=== PATIENT | male | born 1975 | race Caucasian/White ===

== ENCOUNTER 2016-09-03 03:49 | Inpatient (IN) | payer OTHER ==
[~2016-09-03] VITALS: Ht 185.4 cm; Wt 93.2 kg
[~2016-09-03 03:49] MED LIST: LORA-303 PO
[2016-09-03 03:54] VITALS: BP 148/95; PULSE 107; RESP 18; O2SAT 98
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
[2016-09-03 04:47] LABS: BASOPHILS % (AUTO) 0.6 % (0-3); EOSINOPHILS % (AUTO) 2.6 % (0-5); Mean Corpuscular Hemoglobin 30.6 pg (27.0-35.0); Mean Corpuscular Volume 85.7 fL (81-100); NEUTROPHILS % (AUTO) 69.9 % (40-74); Platelet Count 293 bil/L (150-400)
[2016-09-03] MEDS ORDERED: OLANZapine Zydis ODT 5 mg Tablet PO ONE (06:35)
[2016-09-03 07:12] VITALS: BP 138/93; PULSE 104; RESP 20; O2SAT 96
--- NOTE | 2016-09-03 08:30 | DRSVH ---
PROCEDURE: CT BRAIN WITHOUT CONTRAST ([id number]) INDICATIONS: NEW ONSET HALLUCINATIONS TECHNIQUE: Noncontrast 4.5 mm thick angled axial sections acquired from the foramen magnum to the vertex, with c oronal reformats. COMPARISON: None. FINDINGS: Image quality: Excellent. CSF spaces: Basal cisterns are patent. No extra-axial fluid collections. Ventricles are normal in size and shape. Brain: No midline shift. No intracranial masses or hemorrhage. Hester-white matter interface is norm al. Skull and face: Calvarium and visualized facial bones are intact. 1.1 x 0.6 cm lytic focus noted in the lateral margin of the left supraorbital rim which is nonspecific imaging characteristics. Sinuses: Mucosal thickening noted in the maxillary sinuses. The mastoids are clear. IMPRESSION: 1. No acute intracranial disease process. 2. Small lytic focus involving the left supraorbital rim. Recommend nuclear medicine bone scan to aid in differentiating benign from aggressive processes. Dictated by: Tabitha Caro MD, PhD on 09/03/2016 at 8:24 Approved by: Tabitha Caro MD, PhD on 09/03/2016 at 8:28
[2016-09-03 12:54] VITALS: BP 131/93; PULSE 104; RESP 18; O2SAT 98
[2016-09-03 13:14] VITALS: BP 131/93; PULSE 104; RESP 18; O2SAT 98
--- NOTE | 2016-09-03 15:11 | PCM.CHPMED ---
Subjective Date of Service: Sep 03, 2016 Primary Physician: Admitting Physician: Vijay Parrish MD Primary Care Physician: Muna Wilson MD Attending Physician: Vijay Parrish MD Chief Complaint: Chief Complaint: Leukocytosis and psychosis History of Present Illness: This is a medical consultation requested by inpatient psychiatry. 5-year-old gentleman with a history of ADD who is admitted with acute auditory hallucinations. He has no history of psychosis, schizophrenia, or schizoaffective disorder. He denies a family history of the above. He has a remote history of alcohol dependence but has been sober for about a year. He uses occasional marijuana but denies any other illicit drug use including methamphetamines. The patient has a right periorbital hematoma which she declines to talk about today. I am told this may relate to his self-inflicted wound. The patient was evaluated head CT which showed abnormal signal in the right orbital rim. No fracture. He also is noted to have leukocytosis. The patient denies recent infectious symptoms including rhinorrhea and sore throat cough dyspnea. No nausea vomiting or diarrhea. No hematuria or dysuria. No myalgias or arthralgias fevers or chills. Review of Systems: Constitutional: Reports: Malaise, Denies: Chills, Fever, Sweats, Weakness Eyes: Denies: Conjunctive Inflammation, Double Vision, Eyelid Inflammation, Redness, Vision Changes ENT: Denies: Dysphagia, Hoarseness, Nasal Congestion, Nose Discharge, Nose Pain Neck: Denies: Pain, Swelling Cardiovascular: Denies: Chest Pain, Irregular Heart Rate, Rapid Heart Rate, SOB on Exertion, SOB while laying flat Respiratory: Denies: Cough, Shortness of Breath Gastrointestinal: Denies: Abdominal Pain, Blood in stool (red), Change in Appetite, Diarrhea, Nausea, Vomiting Genitourinary: Denies: Change in Frequency, Dysuria, Hematuria, No burning or pain with urination Musculoskeletal: Denies: Back Pain Skin: Reports: Bruising, Denies: Itching, Lesions, Rash Neurological: Denies: Change in Speech, Confusion, Drooping Mouth, Seizures, Somnolence Psychologic: Reports: Agitation, Anxiety, Depression, Denies: Insomnia, PTSD-Post Traumatic Stress Disorder, Suicidal Thoughts Endocrine: Reports: Blood Glucose Review Hematologic: Denies: Abnormal Bleeding Lymphatic: Denies: Adenopathy PMH Past Medical History 1. Anxiety 2. Hypertension, possible 3. ADD HEENT History: Denies:: Cataracts Glaucoma Cardiovascular History: Denies:: Atrial Fibrillation Peripheral Vascular Respiratory History: Denies:: Asthma Gastrointestinal History: Denies: Cirrhosis Genitourinary History: Denies: HX of Hemodialysis Reproductive History Male: Denies: Prostate Problems Neurological History: Denies: Alzheimer's Disease CVA Musculoskeletal History: Denies: Back Injury Psycho Social History: Positive for:: Anxiety Hx Depression Denies:: Bipolar Disorder Suicide Attempt Skin History: Denies:: History Skin Disorders? Hx Any Other Health Problems?: NoHx Diabetes: No Home Medications Ritalin Allergies: Coded Allergies: No Known Allergies (Unverified , 09/03/16) Social History Hx Alcohol Use: YesHx Substance Use: NoHx Tobacco Use: No Living Arrangement: Alone Exam Vital Signs Vital Sign - Last Date Time Temp Pulse Resp B/P Pulse Ox O2 Delivery O2 Flow Rate FiO2 09/03/16 13:14 36.4 104 18 131/93 98 Room Air General: Alert, Oriented X3, Cooperative, No Acute Distress Head: Normal, Facial Expression & Appearance, Hair, Scalp Eyes: PERRLA, EOMI, Scleral Anicteric Mouth: Mouth Normal Neck: Supple, No Thyromegaly Chest & Lungs: Clear to auscultation & percussion, No adventitious breath sounds Breasts: Normal Back, Sacral Area and Buttocks: Normal Cardiovascular: Exam Unremarkable Pulses: NL carotid, radial, femoral, DP, PT Abdomen: Non-tender, Non-distended Musculoskeletal: Unremarkable, Normal Range of Motion, Spine, Cervical Spine Extremities: Normal bilaterally Skin: Other (no skin rash except the right periorbital hematoma) Neurological: Grossly Neurologically Intact, Cranial Nerves 2-12 Intact, Normal Speech, Strength Normal /4 ext, Normal Gait Lab and Diagnostics Result Diagram: 09/03/1642909/03/16 043 X-Rays, CTs and MRIs 1. No acute intracranial disease process. 2. Small lytic focus involving the left supraorbital rim. Recommend nuclear medicine bone scan to aid in differentiating benign from aggressive processes. Assessment & Plan Assessment 1. Acute psychosis. It is unclear if this is drug related or manifestation of schizophrenia. The patient is having this managed by inpatient behavioral health 2. Leukocytosis. This is a nonspecific finding. We will check blood cultures 2, year and the CSF indicated, chest x-ray. Will watch for fevers. 3. Abnormal signal or enhancing lesion on left orbital rim and head CT, incidental finding. I know the patient has a PSA ordered to the ED but at this point I would simply defer further imaging of this until patient stabilized and likely even discharge in the hospital. The adnexa and could simply be a focus CT of the sinuses normal REM or an MRI. Problems: Pain Evaluation: Adequate Pain Control Resuscitation Status: CPR: Attempt Resuscitation Time spent 35 minutes Marco Antonio Lai MD Sep 03, 2016 15:11
[2016-09-03] MEDS ORDERED: DEXT20TA8 PO (15:17)
[2016-09-03] MEDS ORDERED: CITA40TA PO (15:17)
[2016-09-03] MEDS ORDERED: PROP80TA4 PO (15:17)
[2016-09-03] MEDS ORDERED: LORA1TAB PO (15:17)
[2016-09-03] MEDS ORDERED: Magnesium Hydroxide 10 mL Oral Concentration PO PRN (15:40)
[2016-09-03] MEDS ORDERED: Alum-Mag Hydrox-Simeth 30 mL Suspension PO PRN (15:40)
[2016-09-03] MEDS ORDERED: Benzocaine-Menthol Lozenge 2/Pkg PO PRN (15:40)
--- NOTE | 2016-09-03 15:54 | DRSVH ---
PROCEDURE: X-RAY CHEST ONE VIEW, PORTABLE ([id number]) INDICATIONS: leukocystosis TECHNIQUE: One view of the chest was acquired. COMPARISON: None. FINDINGS: Surgical changes and devices: None. Lungs and pleura: No pleural effusions or pneumothorax. Lungs are clear. Mediastinum: Mediastinal contours appear normal. Heart size is normal. Bones and chest wall: No suspicious bony lesions. Overlying soft tissues appear unremarkable. IMPRESSION: No acute cardiopulmonary disease process. Dictated by: Tabitha Caro MD, PhD on 09/03/2016 at 15:52 Approved by: Tabitha Caro MD, PhD on 09/03/2016 at 15:52
[2016-09-03] MEDS: OLANZapine Zydis ODT 5 mg Tablet PO PRN (15:55)
[2016-09-03] MEDS: LORazepam 1 mg Tablet PO PRN (15:55)
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
--- NOTE | 2016-09-03 17:17 | NUR ---
Nursing Admission Note: Patient arrived on unit in a wheel chair escorted by ER staff and security. LIAM'd 72 hour hold as gravely disabled due too increasing delusions and auditory hallucinations command in nature. Has a blackened right eye "they told me to punch myself in the eye or they would hurt my family." Patient's father's story per record is that patient ran into the fridge and that the patient has been increasingly paranoid and delusional in the last 3 days. Tense during admission process. Speech pressured at times. When discussing his right eye and the chip in it that he would like to remove on his own he brought his finger over to just below the right ear and pointed to a spot that resembled a small fungal rash. "The chip is in here." Patient received Ativan 2 mg PO and Zyprexa Zydis at 1555 with effective results for "high" anxiety and delusional comments. Hospitalist consult ordered and patient seen by Dr. Lai. Will continue to monitor mood and behavior.
--- NOTE | 2016-09-03 20:12 | NUR ---
OBSERVATIONS 1100 TO 2130 Pt arrived on unit at 1300. Pt presents as paranoid and delusional, believes there are transceivers in his R eye and lower cheek. That his neighbors have been coming into his home and doing these things to him when he is unconscious d/t heavy drinking. Pt was agitated upon arrival claiming he did not know he was brought to unit involuntarily and repeatedly asked for a mirror and tweezers to get the transceiver out of his eye. Shortly after admit pt went to room to sleep. Maintained Q15 checks for safety as directed.
[2016-09-03] MEDS ORDERED: _LORazepam 1 mg Tablet PO SCH (20:30)
[2016-09-03] MEDS: LORazepam 1 mg Tablet PO SCH (20:36)
[2016-09-03] MEDS ORDERED: OLANZapine Zydis ODT 5 mg Tablet PO SCH (21:00)
[2016-09-03 23:56] LABS: APPEARANCE,URINE HAZY (CLEAR,HAZY); COLOR,URINE YELLOW (YELLOW); OCCULT BLOOD,URINE NEGATIVE (NEGATIVE); UROBILINOGEN,URINE NORMAL (NORMAL)
--- NOTE | 2016-09-04 05:13 | NUR ---
Pt isolated to room. Asleep at 1745. Pt observed every 15 minutes as ordered.
--- NOTE | 2016-09-04 06:03 | NUR ---
Nursing Note [id number] S:/O: Patient in bed entire shift. Woke to take scheduled medications without difficulty. Requested more blankets due to feeling cold. 13+? hrs sleep. A: Patient tired, cooperative. P: Monitor for response to treatment. Q15 minute safety checks for safety. Follow plan of care.
[2016-09-04] MEDS: LORazepam 1 mg Tablet PO SCH ×2 (08:39→21:00)
[2016-09-04 09:00] VITALS: BP 131/84; PULSE 98; RESP 17
[2016-09-04 10:53] LABS: Mean Corpuscular Hemoglobin 30.3 pg (27.0-35.0); Mean Corpuscular Volume 87.2 fL (81-100)
[2016-09-04] MEDS: OLANZapine Zydis ODT 5 mg Tablet PO PRN (11:31)
[2016-09-04] MEDS: LORazepam 1 mg Tablet PO PRN (11:31)
--- NOTE | 2016-09-04 16:19 | PCM.PNPSY ---
Subjective Date of Service Sep 04, 2016 Subjective The patient was quite irritable on interview and stated, "I feel normal. Who was the doctor who put me in here? Probably was you!" When informed of the process of mental health commitment, he stated that the [facility] was nice to him to his face but that he could hear him saying "shut the fuck up" under his breath. The patient reported that he should be released as he came to the hospital for a blood test (to determine whether he had been poisoned by someone) and that there is nothing mentally wrong with him. The patient could be heard yelling on the phone to someone about the illegality of his hospitalization. He could not be engaged sufficiently to discuss his delusions as he was becoming increasingly agitated. He was medication adherent with olanzapine. Sleep: 15 hours point to staff. Appetite: Patient states that he will not eat well he is illegally detained. Suicidal and homicidal ideation: None reported Auditory hallucinations/Visual hallucinations: Unable to assess Other Psychotic Symptoms: Paranoid and agitated Anxiety/Depression: Unable to assess Current Medications Current Medications Citalopram Hydrobromide 40 mg DAILY PO Last administered on 09/04/16 08:39; Admin Dose 40 MG; Start 09/04/16 at 08:30 Lorazepam 1 mg BID PO Last administered on 09/04/16 08:39; Admin Dose 1 MG; Start 09/03/16 at 20:30 Lorazepam 2 mg Q4H PRN PO Last administered on 09/04/16 11:31; Admin Dose 2 MG ; Start 09/03/16 at 15:40 Olanzapine 5 mg BID PRN PO Last administered on 09/04/16 11:31; Admin Dose 5 MG ; Start 09/03/16 at 15:40 Olanzapine 10 mg HS PO Last administered on 09/03/16 20:36; Admin Dose 10 MG; Start 09/03/16 at 21:00 Olanzapine 10 mg ONCE ONCE PO Last administered on 09/03/16 06:35; Admin Dose 10 MG; Start 09/03/16 at 06:35; Stop 09/03/16 at 06:36; Status DC Propranolol HCl 80 mg BID PO Last administered on 09/04/16 08:39; Admin Dose 80 MG; Start 09/03/16 at 20:30 Zolpidem Tartrate Start with 5 mg and may rep... HS PRN PO Last administered on 09/03/16t 20:35; Admin Dose 5 MG; Start 09/03/16 at 15:40 Mental Status Exam Appearance: Neat/well groomed, Other (right eye ecchymotic, swollen.) Attitude: Guarded, Uncooperative, Hostile/Threatening Behavior: Overtly anxious, Other (angry) Affect: Labile Mood: Irritable, Anxious, Fearful Thought Process/Associations: Circumstantial Speech Production: Normal Speech Rate: Normal Speech Articulation: Normal Thought Content: Suspicious, Perseveration Danger to Self/Suicidal Ideati: None Danger to Others: None Delusions: Paranoid (Endorses), Other (unable to assess but continues to report paranoid delusions) Hallucinations: Auditory (unable to assess), Visual (unable to assess) Consciousness: Alert Orientation: Person, Place, Date, Situation Memory: Short Term Memory (Impaired), Mcc Memory (unable to assess) Estimate Intellectual Function: Average Basis for IQ estimate: Awareness current events, Word use/vocabulary, Educational history, Employment history Attention/Concentration & Cogn: Impaired Insight: None Judgement: Poor Result Diagram: 09/04/16 1030 09/03/16 0430 Mental Health Plan The patient is a 41-year-old male with recent exacerbation paranoia as noted above. The patient's symptoms may have been present for as much as 2 years but did not appear to be present for that. The patient also has an elevated white count of 18,000 and a lytic lesion present on CT scan. The patient has been taking Adderall consistently for 20 years but it is not impossible that this has caused insomnia with resultant psychosis. The patient currently has limited to no insight and believes that his symptoms are due primarily to his neighbors. The patient was given olanzapine in the emergency room which helped to reduce anxiety and agitation. Internal medicine has been consulted and will assess for possible medical causes for psychosis. In the meantime, the patient is being treated symptomatically with olanzapine and Adderall will not be restarted given the potential for worsening psychosis. The patient is demonstrating increased agitation and appears to need an increase in the dose of olanzapine. [place] AXIS I: Psychotic disorder unspecified. Attention deficit disorder by history Panic disorder by history Marijuana use disorder. AXIS II: Deferred AXIS III: See past medical history AXIS IV: Unemployed, lives alone, limited coping skills. AXIS V: GAF 25 Medications Medications to address General Physical Health Propranolol 80 mg twice daily Medications to address Mental Health Citalopram 40 mg daily Lorazepam 1 mg twice daily Lorazepam 2 mg every 4 hours when necessary anxiety not to exceed 6 mg in 24 hours Olanzapine Zydis 10 mg at bedtime Olanzapine Zydis 5 mg twice daily as needed for paranoia/severe agitation Treatments 1. The patient will be moved to the short hallway where he can be better observed to ensure that although he is denying any thoughts of injuring himself , early intervention can occur should this happen. One-to-one is not indicated at this time as he is not indicating any self-harm or harm to others. 2. The patient is encouraged to participate with group and milieu activities. 3. The patient will be seen by the treatment team on a daily basis to assess symptom side effects response to treatment. 4. Olanzapine will be increased to 10 mg twice daily due to persistent and apparent worsening psychosis. 5. Appreciates internal medicine consultation. No sign of infection at this time although white count remains elevated. 6. Anticipated length of stay is 10-14 days. Vijay Parrish MD Sep 04, 2016 16:18
--- NOTE | 2016-09-04 18:07 | NUR ---
Nursing Dayshift: S: "It's not right being sent up here by that doctor and now I can't get out!" O: Patient adamant about not being kept here against his will this AM. Explained the LIAM process and that we would get him his clothes to wear and patient calmed somewhat. After a phone call with his mother he walked into his room and slammed the door loudly interrupting other patients on the unit. Received offer of Ativan 2 mg PO and Zyprexa Zydis 5 mg at 1135 with patient refusing lunch "I'm not eating any of your crap", lying down and going to sleep shortly afterward. Declined offer for supper. Cooperative for hospitalist exam recently. A: Irritable and demanding at times. Med compliant. P: CPOC. Monitor mood and behavior.
--- NOTE | 2016-09-04 18:22 | PCM.PNMED ---
Subjective Date of Service Sep 04, 2016 Subjective Sleeping, arouses easily, no complaints. Denies any pain, nasal congestion or cough. Exam Vital Signs Vital Sign - Last Date Time Temp Pulse Resp B/P Pulse Ox O2 Delivery O2 Flow Rate FiO2 09/04/16 09:00 36.4 98 17 131/84 09/03/16 13:14 98 Room Air Exam Heart: reg Lungs: clear Abd: soft, NT Lab and Diagnostics Result Diagram: 09/04/16 1030 09/03/16 0430 Assessment & Plan 1. Acute psychosis. It is unclear if this is drug related or manifestation of schizophrenia. The patient is having this managed by inpatient behavioral health 2. Leukocytosis,a nonspecific finding, just slightly improved today. So far no signs/symptoms of infection. -- remains afebrile -- blood cultures 2 are no growth so far -- chest x-ray was unremarkable -- UA was negative 3. Head CT report: "Small lytic focus involving the left supraorbital rim. Recommend nuclear medicine bone scan to aid in differentiating benign from aggressive processes." -- PSA ordered byED is negative -- bone scan could be done as an outpatient Resuscitation Status: CPR: Attempt Resuscitation Rachel Barahona MD Sep 04, 2016 18:22
[2016-09-04] MEDS: OLANZapine Zydis ODT 5 mg Tablet PO SCH (21:00)
--- NOTE | 2016-09-04 21:01 | NUR ---
Obs Dayshift [id number] Pt spent most of this shift in bed. Got up late for breakfast, and went back to bed. Shortly after got a call from family, became loud, hitting fist, yelling, swearing, slamming his door. Demanding to be let out, demanding his clothing and shoes. Pt stating that we are making a big mistake by holding him here. Stating that he is not the one that did anything wrong, it was the neighbors. since then pt is refusing to eat or drink. Refusing to participate. Staying in bed. Poor ADL's, Poor meals
[2016-09-04 22:03] VITALS: BP 132/80; PULSE 107; RESP 16
--- NOTE | 2016-09-05 04:39 | NUR ---
Observations from [id number] Pt has remained in room-appears to be asleep- entire shift. Has been monitored every 15 minutes as directed.
--- NOTE | 2016-09-05 05:57 | NUR ---
Nursing Noc Pt isolated in his room all shift. Irritable and angry upon interaction w/ staff. He is demanding that he should not be here. Unable to tolerate outside stimulation and interaction with others. Adequate sleep through the night with over 8.5 hours.
[2016-09-05] MEDS: LORazepam 1 mg Tablet PO PRN (07:35)
[2016-09-05] MEDS: OLANZapine Zydis ODT 5 mg Tablet PO SCH ×2 (07:36→20:14)
[2016-09-05] MEDS: LORazepam 1 mg Tablet PO SCH ×2 (07:44→20:13)
--- NOTE | 2016-09-05 07:45 | NUR ---
Nursing: PRN med: 729: Pt is on phone talking loudly and with pressured speech. Stating that he is being held against his will. That he will not stand for this. That he will not take medications. That he will get out of here within a few hours "even it I have to go to detention". Peer patient took typewriter mechanic aside to state "Be careful. This man is dangerous" Pt. approached by typewriter mechanic and offered scheduled po Olanzepine 10 mg and Ativan 2 mg prn instead of the 1 mg scheduled dose. Pt took meds, swallowed, and went back to Room 230. Addendum: 09/05/16 at 0750 by PARKER FARMER RN Jade ortiz called as Pt was stating he would refuse meds. Staff arrived but no action taken because pt had accepted po meds.
[2016-09-05 09:01] LABS: BASOPHILS % (AUTO) 0.4 % (0-3); MONOCYTES % (AUTO) 11.6 % (4-12); Mean Corpuscular Hemoglobin 30.7 pg (27.0-35.0); Mean Corpuscular Volume 88.2 fL (81-100); NEUTROPHILS % (AUTO) 65.2 % (40-74); Platelet Count 258 bil/L (150-400)
[2016-09-05 10:21] LABS: Magnesium 2.1 mg/dL (1.6-2.6); Phosphorus 3.5 mg/dL (2.5-4.9)
--- NOTE | 2016-09-05 14:12 | PCM.PNMED ---
Subjective Date of Service Sep 05, 2016 Subjective Patient remained medically stable Denied headache, dizziness Still has persistent white count, afebrile overnight Exam Vital Signs Vital Sign - Last Date Time Temp Pulse Resp B/P Pulse Ox O2 Delivery O2 Flow Rate FiO2 09/04/16 22:03 107 16 132/80 09/04/16 09:00 36.4 09/03/16 13:14 98 Room Air Exam NAD, comfortably laying down on the bed Right periorbital bruises, PERRLA, EOMI, CN2-12 grossly intact no JVD, MMM, no LAD RRR, nl s1, s2 no mrg CTAB, no w,c S,ND,NT,normoactive BS+ warm, no edema, pulses 2/2 IVs and Medications Medications Reviewed: Medications were reviewed in detail Lab and Diagnostics Result Diagram: 09/05/16 0840 09/05/16 0840 Assessment & Plan 1. Acute psychosis. It is unclear if this is drug related or manifestation of schizophrenia. The patient is having this managed by inpatient behavioral health 2. Leukocytosis,a nonspecific finding, pt remains afebrile, HD stable, blood cultures 2 are no growth so far, chest x-ray was unremarkable, UA was negative 3. Head CT report: "Small lytic focus involving the left supraorbital rim. Recommend nuclear medicine bone scan to aid in differentiating benign from aggressive processes."PSA ordered byED is negative This ill-defined bony process could certainly be associated with persistent white count, given stable clinical picture, unknown chronicity of leukocytosis, given involuntary senior care in psych unit, it might be beneficial to proceed further work ups as an outpatient, such as bone scan, Hospitalist service will follow likely one more day, if pt clinically stable, then likely sign off. Please do not hesitate to reach. Thank you Resuscitation Status: CPR: Attempt Resuscitation Time spent 35 minutes Walt Christianson MD Sep 05, 2016 14:06
--- NOTE | 2016-09-05 15:55 | NUR ---
Kaye Note: Day shift: 699 to 1899 S: It doesn't hurt. (Eccymosis on right eye) O: Jermaine has been lying on bed most of time since taking scheduled meds and 1 mg Ativan PRN for agitation at 0745. He was visited by hospitalist. No further complaints of pain or demanding to go home. Ate breakfast and lunch in the Dr. Beyond his conversation with a peer this a.m., he has kept to himself. A: PRN Ativan and scheduled Zyprexa effective for decreased agitation. P: Continue to assess for delusional thinking about neighbors. Addendum: 09/05/16 at 1622 by PARKER FARMER RN Above note should read: "...lunch in the Dining room. Beyond ...." Addendum: 09/05/16 at 1856 by PARKER FARMER RN This evening when Jermaine came out for dinner, he was calmer and spoke with fha underwriter about court tomorrow. He was seen by public address announcer this evening. Jermaine also made comments about having guns at home.
[2016-09-05 17:45] VITALS: BP 132/93; PULSE 112; RESP 16
--- NOTE | 2016-09-05 19:38 | NUR ---
Observations 0900 to 2130 Pt affect and mood was isolative, flat and guarded. Pt was in her room and in bed most of the shift. Coming out for meals only, then returning to his room. Pt speech and eye contact was ok. Pt declined to attend group and unit activities. Pt attended meals in D.R. Pt declined breakfast but ate 100% of lunch and dinner. Pt was offered snack but he refused. Pt maintained behavior throughout the shift. Pt has been polite, pleasant and cooperative when approached by this commercial insurance underwriter. Pt was observed every 15 minutes throughout the shift as ordered.
--- NOTE | 2016-09-05 21:02 | PCM.PNPSY ---
Subjective Date of Service Sep 05, 2016 Subjective The patient continues easily agitated and wanting discharge. His parents reported that the patient had stopped letting them in the house 2 years ago over concerns about the neighbors. When they went in to clean after he had been hospitalized, they found that he had taken the sliding doors off and screwed them over the windows. The patient is still suspicious of the motives of the neighbors and that he had only needed blood work. Sleep: "good" Appetite: started eating today. Suicidal and homicidal ideation: Denies Auditory hallucinations/Visual hallucinations: Denies Other Psychotic Symptoms: remains hostile and delusional. Anxiety: no response Depression: "no response Current Medications Current Medications Citalopram Hydrobromide 40 mg DAILY PO Last administered on 09/05/16 07:36; Admin Dose 40 MG; Start 09/04/16 at 08:30 Olanzapine 10 mg BID PO Last administered on 09/05/16 20:14; Admin Dose 10 MG; Start 09/04/16 at 20:30 Olanzapine 10 mg HS PO Last administered on 09/03/16 20:36; Admin Dose 10 MG; Start 09/03/16 at 21:00; Stop 09/04/16 at 16:20; Status DC Mental Status Exam Vital Signs Vital Signs Date Time Temp Pulse Resp B/P Pulse Ox O2 Delivery O2 Flow Rate FiO2 09/05/16 17:45 36.2 112 16 132/93 Appearance: Neat/well groomed, Other (right eye ecchymotic, swollen.) Attitude: Guarded, Uncooperative, Hostile/Threatening Behavior: Overtly anxious, Other (angry) Affect: Labile Mood: Irritable, Anxious, Fearful Thought Process/Associations: Circumstantial Speech Production: Normal Speech Rate: Normal Speech Articulation: Normal Thought Content: Suspicious, Perseveration Danger to Self/Suicidal Ideati: None Danger to Others: None Delusions: Paranoid (Endorses), Other (unable to assess but continues to report paranoid delusions) Hallucinations: Auditory (Denies), Visual (Denies) Consciousness: Alert, Hyper-vigilant Orientation: Person, Place, Date, Situation Memory: Short Term Memory (Impaired), Combination Worker Memory (unable to assess) Estimate Intellectual Function: Average Basis for IQ estimate: Awareness current events, Word use/vocabulary, Educational history, Employment history Attention/Concentration & Cogn: Impaired Insight: None Judgement: Poor Result Diagram: 09/05/16 0840 09/05/16 0840 Mental Health Plan The patient is a 41-year-old male with recent exacerbation paranoia as noted above. The patient's symptoms may have been present for as much as 2 years. The patient also has an elevated white count of 18,000 on admission (and remains elevated) and a lytic lesion present on CT scan. The patient has been taking Adderall consistently for 20 years and this may have contributed to insomnia with resultant psychosis, but he has been sleeping well and continues to be psychotic. The patient currently has limited to no insight and believes that his symptoms are due primarily to his neighbors. The patient was given olanzapine in the emergency room which helped to reduce anxiety and agitation. Internal medicine has been consulted and there does not appear to be a medical cause for psychosis. The patient is being treated with olanzapine and there has been some reduction in agitation with increased olanzapine dose. [place] AXIS I: Psychotic disorder unspecified. Attention deficit disorder by history Panic disorder by history Marijuana use disorder. AXIS II: Deferred AXIS III: See past medical history AXIS IV: Unemployed, lives alone, limited coping skills. AXIS V: GAF 25 Medications Medications to address General Physical Health Propranolol 80 mg twice daily Medications to address Mental Health Citalopram 40 mg daily Lorazepam 1 mg twice daily Lorazepam 2 mg every 4 hours when necessary anxiety not to exceed 6 mg in 24 hours Olanzapine Zydis 10 mg twice daily Olanzapine Zydis 5 mg twice daily as needed for paranoia/severe agitation Treatments 1. The patient will be moved to the short hallway where he can be better observed to ensure that although he is denying any thoughts of injuring himself , early intervention can occur should this happen. One-to-one is not indicated at this time as he is not indicating any self-harm or harm to others. 2. The patient is encouraged to participate with group and milieu activities. 3. The patient will be seen by the treatment team on a daily basis to assess symptom side effects response to treatment. 4. Appreciates internal medicine consultation. No sign of infection at this time although white count remains elevated. 5. Anticipated length of stay is 10-14 days. Vijay Parrish MD Sep 05, 2016 21:02
--- NOTE | 2016-09-06 06:40 | NUR ---
Nursing Noc Pt more pleasant and social this shift. He attended evening group. Took scheduled medication without difficulty. Retired to bed and appeared asleep by 2100 with no noted distress or awakening per protocol checks. Total sleep over 9 hours.
[2016-09-06] MEDS: OLANZapine Zydis ODT 5 mg Tablet PO SCH ×2 (10:32→21:06)
[2016-09-06] MEDS: LORazepam 1 mg Tablet PO SCH ×2 (10:32→21:05)
[2016-09-06 10:45] VITALS: BP 127/89; PULSE 113; RESP 18
[2016-09-06 13:38] LABS: Mean Corpuscular Hemoglobin 30.9 pg (27.0-35.0); Mean Corpuscular Volume 87.4 fL (81-100)
--- NOTE | 2016-09-06 15:29 | PCM.PNMED ---
Subjective Date of Service Sep 06, 2016 Subjective Patient denied any symptoms today Denied chest pain or palpitation EKG was ordered given persistent tachycardia Repeat CBC shows trending down wbc Exam Vital Signs Vital Sign - Last Date Time Temp Pulse Resp B/P Pulse Ox O2 Delivery O2 Flow Rate FiO2 09/06/16 10:45 36.2 113 18 127/89 09/03/16 13:14 98 Room Air Exam NAD, comfortably laying down on the bed no JVD, MMM, no LAD RRR, nl s1, s2 no mrg CTAB, no w,c S,ND,NT,normoactive BS+ warm, no edema, pulses 2/2 IVs and Medications Medications Reviewed: Medications were reviewed in detail Lab and Diagnostics Result Diagram: 09/06/16 1315 09/06/16 1315 Assessment & Plan 1. Acute psychosis. It is unclear if this is drug related or manifestation of schizophrenia. The patient is having this managed by inpatient behavioral health 2. Leukocytosis,a nonspecific finding, pt remains afebrile, HD stable, blood cultures 2 are no growth so far, chest x-ray was unremarkable, UA was negative -Given persistent tachycardia along with leukocytosis, EKG was ordered. TSH WNL , will trend WBC 1 more day 3. Head CT report: "Small lytic focus involving the left supraorbital rim. Recommend nuclear medicine bone scan to aid in differentiating benign from aggressive processes."PSA ordered byED is negative This ill-defined bony process could certainly be associated with persistent white count, given stable clinical picture, unknown chronicity of leukocytosis, given involuntary fdc in psych unit, it might be beneficial to proceed further work ups as an outpatient, such as bone scan, Hospitalist service will follow likely one more day, if pt clinically stable, then likely sign off. Please do not hesitate to reach. Thank you Resuscitation Status: CPR: Attempt Resuscitation Time spent 35 minutes Walt Christianson MD Sep 06, 2016 15:29
--- NOTE | 2016-09-06 17:19 | NUR ---
Nursing: Day shift 0700 through 1900 S:/O: At 0845, telegraphic typewriter mechanic received call from Jermaine's mom requesting to talk to Dr. Parrish. She left message that the parent's did not want Jermaine to have to stay in [facility] for 14 days - That parents would be willing to take care of him at home and get him to outpatient psychiatrist. Message conveyed. After breakfast when telegraphic typewriter mechanic approached Jermaine sitting at a table in the DR, Jermaine showed telegraphic typewriter mechanic the picture of a tiny micro processor shown in a hearing aid ad and commented that this picture was evidence of how technology was at a level where there were small computer-capable chips. He commented "I'm not sure they had implanted it, maybe 50/50. No, really, I don't think they did...When the noise is loud (My house is in a [place]de[place] and it funnels the sound), I will wear my ear phones that I got at [facility] that block out noise." He did acknowledge that the obvious eye injury was self-inflicted. "I hadn't slept for 5 nights and it just got to me." Jermaine went on to explain calmly ( in contrast to yesterday) how important it was that he be released today to attend to unemployment job search requirements and union responsibilities. Also reiterated that he does not want/need psychiatric medications. After meeting with Dr. Parrish just after court, Jermaine acknowledged that he understood the plan of care. He didn't become irate or lose behavioral control or request discharge the rest of the shift. Die Maker Apprentice advised Jermaine that he could sign an AUNDREA if he wanted staff to talk to his parents about his progress. He declined, stating that he would prefer to be the one to talk to them about how he feels. A: ?Still delusional r/t implanted chip. Calmer and becoming acceptant about need for treatment. but still minimizes mental state that resulted in alf. P: Assess pt's compliance with treatment by behavior when offered scheduled meds this pm. Addendum: 09/06/16 at 1756 by PARKER FARMER RN Amended: Links added.
--- NOTE | 2016-09-06 17:53 | NUR ---
Observations [id number] Pt was asleep in bed upon start of shift. He attended meals, eating 100%. Pt was very focused on discharge, stating at Community meeting that his goal was to "prove to everyone that I won't harm myself or others....there is no reason for me to be here. I'm the victim here." Pt attended court and then went to bed, and spent much of his time in his room sleeping. Pt was friendly with both staff and peers, and appeared to be more accepting of the fact that he will be here for a few days. Pt did not attend group. He was observed every 15 minutes of shift as directed.
--- NOTE | 2016-09-06 20:02 | NUR ---
Electrical Systems Designer/Counselor: S/O: Patient slept 8.5+ hours last night as per staff. He denies S/I and H/I. He denies auditory and visual hallucinations. Depression is 0/10. A: Patient is cooperative, guarded, anxious, delusional, restricted affect, paranoid, limited insight, limited judgment. P: Follow care plan, coordinate out-patient providers.
--- NOTE | 2016-09-06 20:12 | PCM.PNPSY ---
Subjective Date of Service Sep 06, 2016 Subjective The patient is less agitated today and more willing to cooperate with treatment. The patient is still minimizing his symptoms and reports that the neighbors voices were coming through the small hole in the wall and a gap in the window. He also remains focused on being poisoned somehow. The patient is concerned that he feel remains in the hospital long-term he may miss out on a job. The patient's parents have reportedly agreed to have the patient lived with them and will work on getting in follow-up. The patient is denying side effects from medications. Sleep: 8+ hours "good" Appetite: "Good." Suicidal and homicidal ideation: Denies Auditory hallucinations/Visual hallucinations: Denies Other Psychotic Symptoms: Continues with paranoid delusions Anxiety: Over Depression: Denies Current Medications Current Medications Olanzapine 10 mg BID PO Last administered on 09/06/16t 10:32; Admin Dose 10 MG; Start 09/04/16 at 20:30 Mental Status Exam Appearance: Neat/well groomed, Other (right eye ecchymotic, swollen.) Attitude: Cooperative, Guarded Behavior: Overtly anxious Affect: Restricted Mood: Irritable, Anxious Thought Process/Associations: Logical/Sequential, Goal Directed Speech Production: Normal Speech Rate: Normal Speech Articulation: Normal Thought Content: Suspicious, Perseveration Danger to Self/Suicidal Ideati: None Danger to Others: None Delusions: Paranoid (Endorses), Other (continues to report paranoid delusions) Hallucinations: Auditory (Denies), Visual (Denies) Consciousness: Alert, Hyper-vigilant Orientation: Person, Place, Date, Situation Memory: Short Term Memory (Impaired), Automation Controls Specialist Memory (unable to assess) Estimate Intellectual Function: Average Basis for IQ estimate: Awareness current events, Word use/vocabulary, Educational history, Employment history Attention/Concentration & Cogn: Impaired Insight: None Judgement: Poor Result Diagram: 09/06/16 1315 09/06/16 1315 Mental Health Plan The patient is a 41-year-old male with recent exacerbation of paranoia. The patient's symptoms may have been present for as much as 2 years. The patient also has an elevated white count of 18,000 on admission (and remains elevated by his coming down) and a lytic lesion present on CT scan. The patient has been taking Adderall consistently for 20 years and this may have contributed to insomnia with resultant psychosis, but he has been sleeping well and has been treated with antipsychotics and continues to be psychotic. The patient currently has limited insight and still believes that his symptoms are due primarily to his neighbors. The patient was given olanzapine in the emergency room which helped to reduce anxiety and agitation. Internal medicine has been consulted and there does not appear to be a medical cause for psychosis. The patient is being treated with olanzapine and there has been some reduction in agitation with increased olanzapine dose.The patient's follow-up lab work shows that his white count is coming down. If the patient remains stable tomorrow and is not showing any signs of elopement, further workup may be indicated. [place] AXIS I: Psychotic disorder unspecified. Attention deficit disorder by history Panic disorder by history Marijuana use disorder. AXIS II: Deferred AXIS III: See past medical history AXIS IV: Unemployed, lives alone, limited coping skills. AXIS V: GAF 25 Medications Medications to address General Physical Health Propranolol 80 mg twice daily Medications to address Mental Health Citalopram 40 mg daily Lorazepam 1 mg twice daily Lorazepam 2 mg every 4 hours when necessary anxiety not to exceed 6 mg in 24 hours Olanzapine Zydis 10 mg twice daily Olanzapine Zydis 5 mg twice daily as needed for paranoia/severe agitation Treatments 1. One-to-one is not indicated at this time as he is not indicating any self- harm or harm to others. 2. The patient is encouraged to participate with group and milieu activities. 3. The patient is encouraged to be medication adherent 4. The patient will be seen by the treatment team on a daily basis to assess symptom side effects response to treatment. 5. 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 6. Appreciates internal medicine consultation. No sign of infection at this time although white count remains elevated. 7. Anticipated length of stay is 10-14 days. Vijay Parrish MD Sep 06, 2016 20:11
--- NOTE | 2016-09-07 05:58 | NUR ---
Nursing Note 7p-7a Pt isolating to room most of shift, affect flat and pt guarded. Pt stated some anxiety and denied depression and SI but was unwilling to discuss feelings or current situation. Pt compliant with meds and no PRN's given on shift. Pt cooperative and polite with staff limited socializing with peers noted. Sleep time noted 0 and has had uninterrupted sleep throughout the night. Q15 min safety checks per protocol [facility] sleep, safety, behavior
[2016-09-07] MEDS: LORazepam 1 mg Tablet PO SCH ×2 (09:03→20:46)
[2016-09-07] MEDS: OLANZapine Zydis ODT 5 mg Tablet PO SCH ×2 (09:04→20:46)
[2016-09-07] MEDS: LORazepam 1 mg Tablet PO PRN (09:39)
--- NOTE | 2016-09-07 11:14 | PCM.PNMED ---
Subjective Date of Service Sep 07, 2016 Subjective No overnight event EKG showed sinus76, pt denied any other symptoms Exam Vital Signs Vital Sign - Last Date Time Temp Pulse Resp B/P Pulse Ox O2 Delivery O2 Flow Rate FiO2 09/06/16 10:45 36.2 113 18 127/89 09/03/16 13:14 98 Room Air Exam NAD, comfortably laying down on the bed no JVD, MMM, no LAD RRR, nl s1, s2 no mrg CTAB, no w,c S,ND,NT,normoactive BS+ warm, no edema, pulses 2/2 IVs and Medications Medications Reviewed: Medications were reviewed in detail Lab and Diagnostics Result Diagram: 09/06/16 1315 09/06/16 1315 Assessment & Plan 1. Acute psychosis. It is unclear if this is drug related or manifestation of schizophrenia. The patient is having this managed by inpatient behavioral health 2. Leukocytosis,a nonspecific finding, pt remains afebrile, HD stable, blood cultures 2 are no growth so far, chest x-ray was unremarkable, UA was negative -Given persistent tachycardia along with leukocytosis, EKG was ordered. showed normal rate, sinus rhythm. TSH WNL 3. Head CT report: "Small lytic focus involving the left supraorbital rim. Recommend nuclear medicine bone scan to aid in differentiating benign from aggressive processes."PSA ordered byED is negative This ill-defined bony process could certainly be associated with persistent white count, given stable clinical picture, unknown chronicity of leukocytosis, given involuntary senior living in psych unit, it might be beneficial to proceed further work ups as an outpatient, such as bone scan. I do not see any urgent need of inpatient workups. Thank you for allowing me taking care of this patient. Hospitalist service will sign off. Please have patient follow up PCP upon discharge. Please do not hesitate to reach hospital service again if you have any further question or concern Resuscitation Status: CPR: Attempt Resuscitation Time spent 35 minutes Walt Christianson MD Sep 07, 2016 11:14
--- NOTE | 2016-09-07 13:22 | NUR ---
Nursing Note [id number] Behavior S/O: Pt has been isolating to his room. Out of room for meals. Pt interacts very little with staff & peers. Pt has been polite & cooperative today. Affect is tense. He states he wants to "get out of here." Conversation tracking clear & organized with normal rate & rhythm. Took all medications without problems. A: Pt is guarded & minimally cooperative. P: Provide supportive environment. Monitor medications & effects.
[2016-09-07 15:32] VITALS: BP 133/93; PULSE 109
--- NOTE | 2016-09-07 19:38 | NUR ---
Obs Dayshift [id number] Pt spent most of the day in bed, little to no engaging w/ peers or staff and only when approached. Pt is calm, appropriate, not wanting to participate in any groups. Gets up for meals, meds and a little TV in the evening. Ok ADL's, Good meals
--- NOTE | 2016-09-07 19:58 | NUR ---
Structural Steel Erection Supervisor/Counselor: S: "I'm okay with getting the scan done." O: Patient slept 8+ hours last night as per staff. He denies S/I and H/I. He denies auditory and visual hallucinations. Depression is 0/10 and anxiety is 0/10. A: Patient is cooperative, guarded, restricted affect, irritable, suspicious, paranoid, no insight, poor judgment. P: Follow care plan, coordinate with out-patient providers.
--- NOTE | 2016-09-07 20:13 | PCM.PNPSY ---
Subjective Date of Service Sep 07, 2016 Subjective The patient is somewhat sedated following a lorazepam due to agitation. The patient denies all symptoms and is cooperative with the treatment team however he offers little information. The patient is denying side effects from medications. Sleep: 8+ hours "good" Appetite: "Good." Suicidal and homicidal ideation: Denies Auditory hallucinations/Visual hallucinations: Denies Other Psychotic Symptoms: Denies any delusions but demonstrates probably of speech Anxiety: Denies Depression: Denies Current Medications Current Medications Nicotine 1 patch DAILY TOPICAL Last administered on 09/07/16t 10:33; Admin Dose 1 PATCH; Start 09/07/16 at 10:05 Mental Status Exam Vital Signs Vital Signs Date Time Temp Pulse Resp B/P Pulse Ox O2 Delivery O2 Flow Rate FiO2 09/07/16 15:32 109 133/93 Appearance: Neat/well groomed, Other (right eye ecchymotic, swelling improved.) Attitude: Cooperative, Guarded Behavior: Overtly anxious Affect: Restricted Mood: Irritable, Anxious Thought Process/Associations: Logical/Sequential, Goal Directed Speech Production: Normal Speech Rate: Normal Speech Articulation: Normal Thought Content: Suspicious, Perseveration Danger to Self/Suicidal Ideati: None Danger to Others: None Delusions: Paranoid (Endorses), Other (continues to report paranoid delusions, but decreased in intensity) Hallucinations: Auditory (Denies), Visual (Denies) Consciousness: Alert, Hyper-vigilant Orientation: Person, Place, Date, Situation Memory: Short Term Memory (Impaired), Group Home Memory (unable to assess) Estimate Intellectual Function: Average Basis for IQ estimate: Awareness current events, Word use/vocabulary, Educational history, Employment history Attention/Concentration & Cogn: Impaired Insight: None Judgement: Poor Result Diagram: 09/06/16 1315 09/06/16 1315 Mental Health Plan The patient is a 41-year-old male with recent exacerbation of paranoia. The patient's symptoms may have been present for as much as 2 years. The patient also has an elevated white count of 18,000 on admission (and remains elevated by his coming down) and a lytic lesion present on CT scan. The patient has been taking Adderall consistently for 20 years and this may have contributed to insomnia with resultant psychosis, but he has been sleeping well and has been treated with antipsychotics and continues to be psychotic. The patient currently has limited insight and still believes that his symptoms are due primarily to his neighbors. The patient was given olanzapine in the emergency room which helped to reduce anxiety and agitation. Internal medicine has been consulted and there does not appear to be a medical cause for psychosis. The patient is being treated with olanzapine and there has been some reduction in agitation with increased olanzapine dose.The patient's follow-up lab work shows that his white count is coming down. The patient was quite irritable earlier in the day with paranoia. Following lorazepam he was quite drowsy and less irritable. [place] AXIS I: Psychotic disorder unspecified. Attention deficit disorder by history Panic disorder by history Marijuana use disorder. AXIS II: Deferred AXIS III: See past medical history AXIS IV: Unemployed, lives alone, limited coping skills. AXIS V: GAF 25 Medications Medications to address General Physical Health Propranolol 80 mg twice daily Medications to address Mental Health Citalopram 40 mg daily Lorazepam 1 mg twice daily Lorazepam 2 mg every 4 hours when necessary anxiety not to exceed 6 mg in 24 hours Olanzapine Zydis 10 mg twice daily Olanzapine Zydis 5 mg twice daily as needed for paranoia/severe agitation Treatments 1. One-to-one is not indicated at this time as he is not indicating any self- harm or harm to others. 2. The patient is encouraged to participate with group and milieu activities. 3. The patient is encouraged to be medication adherent 4. The patient will be seen by the treatment team on a daily basis to assess symptom side effects response to treatment. 5. Decrease olanzapine to 5 mg in the morning and 10 mg at bedtime. 6. Appreciates internal medicine consultation. No sign of infection at this time although white count remains elevated. We will discuss nuclear medicine option if remains stable tomorrow. 7. Anticipated length of stay is 10-14 days. Vijay Parrish MD Sep 07, 2016 20:13
--- NOTE | 2016-09-08 05:57 | NUR ---
nursing, nights, 11-7 s/o- has appeared to sleep after 2214 during q 15 minute assessments. a- no apparent distress. p- monitor behavior/emotional state, quality, times and amount of sleep, use and effect of medication. meagan
[2016-09-08] MEDS: LORazepam 1 mg Tablet PO SCH (08:30)
[2016-09-08 09:20] VITALS: BP 121/79; PULSE 82; RESP 17
--- NOTE | 2016-09-08 14:36 | NUR ---
Nursing Note [id number] Behavior S/O: Pt has good appetite. Out in milieu. Appropriate with staff & peers. Conversation tracking clear & organized with normal rate & rhythm. Uses only brief sentences with peers & staff. Minimal eye contact. Attended groups but minimally talked with peers. Superficial interactions only. VS stable. A: Pt appears to be paranoid. P: Provide supportive environment. Monitor medications & effects.
[2016-09-08] MEDS: OLANZapine Zydis ODT 5 mg Tablet PO PRN (20:33)
--- NOTE | 2016-09-08 20:34 | NUR ---
Nurse PRN Patient received Ambien 5mg for sleep,shift superintendent caustic cresylate to assess response.
--- NOTE | 2016-09-08 20:42 | NUR ---
Observations 0900 to 2130 Pt affect and mood was flat, content and more social than previous shifts. Pt was out of his room more. Pt speech and eye contact was better. Pt attended group and unit activities. Pt attended community meeting and set a daily goal. Pt played ping pong with peer. Pt attended meals in D.R. Pt declined breakfast but ate 100% of meals. Pt was offered snack but he refused. Pt maintained behavior throughout the shift. Pt has been polite, pleasant and cooperative when approached. Pt was observed every 15 minutes throughout the shift as ordered.
[2016-09-08 22:08] VITALS: BP 135/87; PULSE 90; RESP 16
--- NOTE | 2016-09-08 22:56 | PCM.PNPSY ---
Subjective Date of Service Sep 08, 2016 Subjective The patient reports that he feels "great." He reports that he is getting along with people. He reports that he doesn't "feel too tired or too awake." Patient reported ongoing belief that neighbors were talking to him and answering his questions despite the fact that no one was there. He reports that he has captured them on tape, although he has been too paranoid the last few years to share it with his family. He continues to believe that he has been poisoned but is less adamant about this. The patient is denying side effects from medications. Sleep: "good" Appetite: "Okay." Suicidal and homicidal ideation: Denies Auditory hallucinations/Visual hallucinations: Denies Other Psychotic Symptoms: See above Anxiety: Denies Depression: Denies Current Medications Current Medications Nicotine 1 patch DAILY TOPICAL Last administered on 09/08/16 08:40; Admin Dose 1 PATCH; Start 09/07/16 at 10:05 Nicotine Polacrilex 2 mg Q4H PRN [place] Last administered on 09/08/16 12:26; Admin Dose 2 MG; Start 09/07/16 at 10:05 Olanzapine 2.5 mg DAILY PO Last administered on 09/08/16 08:40; Admin Dose 2.5 MG; Start 09/08/16 at 08:30 Olanzapine 5 mg DAILY PO Last administered on 09/08/16 08:40; Admin Dose 5 MG; Start 09/08/16 at 08:30 Mental Status Exam Vital Signs Vital Signs Date Time Temp Pulse Resp B/P Pulse Ox O2 Delivery O2 Flow Rate FiO2 09/08/16 22:08 90 16 135/87 Appearance: Neat/well groomed, Other (right eye ecchymotic, swelling improved.) Attitude: Cooperative, Guarded Behavior: Overtly anxious Affect: Restricted Mood: Euthymic Thought Process/Associations: Logical/Sequential, Goal Directed Speech Production: Normal Speech Rate: Normal Speech Articulation: Normal Thought Content: Suspicious, Perseveration Danger to Self/Suicidal Ideati: None Danger to Others: None Delusions: Paranoid (Endorses), Other (continues to report paranoid delusions, but decreased in intensity) Hallucinations: Auditory (Denies), Visual (Denies) Consciousness: Alert, Hyper-vigilant Orientation: Person, Place, Date, Situation Memory: Grossly Intact Estimate Intellectual Function: Average Basis for IQ estimate: Awareness current events, Word use/vocabulary, Educational history, Employment history Attention/Concentration & Cogn: Impaired Insight: Limited Judgement: Poor Result Diagram: 09/06/16 1315 09/06/16 1315 Mental Health Plan The patient is a 41-year-old male with recent exacerbation of paranoia. The patient's symptoms may have been present for as much as 2 years. The patient also has an elevated white count of 18,000 on admission (and remains elevated by his coming down) and a lytic lesion present on CT scan. The patient has been taking Adderall consistently for 20 years and this may have contributed to insomnia with resultant psychosis, but he has been sleeping well and has been treated with antipsychotics and continues to be psychotic. The patient currently has limited insight and still believes that his symptoms are due primarily to his neighbors. The patient was given olanzapine in the emergency room which helped to reduce anxiety and agitation. Internal medicine has been consulted and there does not appear to be a medical cause for psychosis. The patient is being treated with olanzapine and there has been some reduction in agitation with increased olanzapine dose.The patient's follow-up lab work shows that his white count is coming down, but remains elevate. Serum lead 1 or normal. Patient calmer, but with impaired though improved insight. [employer] AXIS I: Psychotic disorder unspecified. Attention deficit disorder by history Panic disorder by history Marijuana use disorder. AXIS II: Deferred AXIS III: See past medical history AXIS IV: Unemployed, lives alone, limited coping skills. AXIS V: GAF 25 Medications Medications to address General Physical Health Propranolol 80 mg twice daily Medications to address Mental Health Citalopram 40 mg daily Olanzapine Zydis 10 mg twice daily Olanzapine Zydis 5 mg twice daily as needed for paranoia/severe agitation Treatments 1. One-to-one is not indicated at this time as he is not indicating any self- harm or harm to others. 2. The patient is encouraged to participate with group and milieu activities. 3. The patient is encouraged to be medication adherent 4. The patient will be seen by the treatment team on a daily basis to assess symptom side effects response to treatment. 5. Decrease olanzapine to 5 mg in the morning and 10 mg at bedtime. 6. Appreciates internal medicine consultation. No sign of infection at this time although white count remains elevated. We will discuss nuclear medicine option if remains stable tomorrow. 7. Anticipated length of stay is 10-14 days. 8. Discontinue lorazepam to prevent disinhibition. Vijay Parrish MD Sep 08, 2016 22:56
--- NOTE | 2016-09-09 05:51 | NUR ---
nursing, nights, 11-7 s/o- has appeared to sleep after 2129 during q 15 minute assessments. a- no apparent distress. p- monitor behavior/emotional state, quality, times and amount of sleep, use and effect of medication. meagan
--- NOTE | 2016-09-09 05:59 | NUR ---
Observations from [id number] Pt spent the evening watching tv with other patients. He said he accomplished his goal of working on discharge and pt appeared asleep at 2130 and has slept through the night. Pt has been monitored every 15 minutes as directed.
[2016-09-09 09:05] VITALS: BP 113/73; PULSE 65; RESP 16
--- NOTE | 2016-09-09 12:04 | PCM.DIMED ---
Discharge Instructions Date of Service Sep 09, 2016 Dates of Hospitalization Sep 03, 2016 at 12:00 Discharge Diagnosis Discharge Diagnosis AXIS I: Psychotic disorder unspecified. Attention deficit disorder by history Panic disorder by history Marijuana use disorder. AXIS II: Deferred AXIS III: Hypertension, lytic lesion left orbit AXIS IV: Unemployed, lives alone, limited coping skills. AXIS V: GAF 45 Test Results Laboratory Tests 72 Hours Test 09/06/16 13:15 White Blood Count 14.7th/mm3 (3.8-10.1) Red Blood Count 4.99mil/mm3 (4.40-5.80) Hemoglobin 15.4g/dL (13.8-17.2) Hematocrit 43.6% (41.0-50.0) Mean Corpuscular Volume 87.4fL (81-100) Mean Corpuscular Hemoglobin 30.9pg (27.0-35.0) Mean Corpuscular Hemoglobin Concent 35.3% (32.0-37.0) Red Cell Distribution Width 12.3% (12.3-15.4) Platelet Count 246bil/L (150-400) Sodium Level 139mEq/L (134-144) Potassium Level 3.9mEq/L (3.5-5.2) Chloride Level 99mEq/L (97-108) Carbon Dioxide Level 26mmol/L (18-29) Blood Urea Nitrogen 18mg/dL (6-24) Creatinine 0.58mg/dL (0.76-1.27) Estimat Glomerular Filtration Rate 165mL/min (>59) Glucose Level 90mg/dL (60-99) Calcium Level 9.1mg/dL (8.5-10.1) Total Bilirubin 0.4mg/dL (0.0-1.2) Aspartate Amino Transf (AST/SGOT) 48U/L (0-50) Alanine Aminotransferase (ALT/SGPT) 55U/L (0-44) Alkaline Phosphatase 87U/L (25-150) Total Protein 7.1g/dL (6.4-8.4) Albumin 4.3g/dL (3.4-5.0) Whole Blood Lead 1ug/dL (0-19) CBC Test 09/05/16 08:40 09/06/16 13:15 Neutrophils (%) (Auto) 65.2% (40-74) Lymphocytes (%) (Auto) 20.3% (14-46) Monocytes (%) (Auto) 11.6% (4-12) Eosinophils (%) (Auto) 2.0% (0-5) Basophils (%) (Auto) 0.4% (0-3) White Blood Count 14.7th/mm3 (3.8-10.1) Red Blood Count 4.99mil/mm3 (4.40-5.80) Hemoglobin 15.4g/dL (13.8-17.2) Hematocrit 43.6% (41.0-50.0) Mean Corpuscular Volume 87.4fL (81-100) Mean Corpuscular Hemoglobin 30.9pg (27.0-35.0) Mean Corpuscular Hemoglobin Concent 35.3% (32.0-37.0) Red Cell Distribution Width 12.3% (12.3-15.4) Platelet Count 246bil/L (150-400) CMP Test 09/03/16 04:30 09/05/16 08:40 09/06/16 13:15 Prostate Specific Antigen 0.9ng/mL Thyroid Stimulating Hormone (TSH) 1.210uIU/mL Hold Moran Top Tube Received Phosphorus Level 3.5mg/dL Magnesium Level 2.1mg/dL Procalcitonin 0.05ng/mL Sodium Level 139mEq/L Potassium Level 3.9mEq/L Chloride Level 99mEq/L Carbon Dioxide Level 26mmol/L Blood Urea Nitrogen 18mg/dL Creatinine 0.58mg/dL Estimat Glomerular Filtration Rate 165mL/min Glucose Level 90mg/dL Calcium Level 9.1mg/dL Total Bilirubin 0.4mg/dL Aspartate Amino Transf (AST/SGOT) 48U/L Alanine Aminotransferase (ALT/SGPT) 55U/L Alkaline Phosphatase 87U/L Total Protein 7.1g/dL Albumin 4.3g/dL Diet No restrictions Activity No restrictions Patient Instructions Should you have any thoughts of harming yourself or others, please call the crisis line, your provider, 911, or go to the nearest Emergency Department. Do not change or discontinue your medications without discussing with your provider. You have been given a prescription for 30 days supply of your medication Follow-up with your medical provider regarding the lesion on your left orbit. Follow-up plan Mental Health KOFI Turpin on September 29, 2016 at [address] Ninoska Wilson on September 12, 2016 @ 01:30 [facility] [place] [address] Vijay Parrish MD Sep 09, 2016 12:04
[2016-09-09] MEDS ORDERED: ZLP5T PO (12:06)
[2016-09-09] MEDS ORDERED: OLAN5TAB PO ×2 (12:06)
[2016-09-09] MEDS ORDERED: CITA40TA PO (12:06)
--- NOTE | 2016-09-09 12:50 | NUR ---
Nursing Discharge Note: Patient cooperative with discharge process. Acknowledges understanding of d/c instructions and has a copy with them upon leaving unit at 1245. Belongings accounted for and with patient. Prescriptions faxed to patients pharmacy at [facility]. Patient denies harmful thoughts and hallucinations at this time.
--- NOTE | 2016-09-09 17:32 | NUR ---
Tactical Response Group Officer/Counselor: S: "I'm ready to go home." O: Patient slept 8+ hours last night as per staff. He denies S/I and H/I. He denies auditory and visual hallucinations. Depression is 0/10 and anxiety is 0/10. Out-patient appointments: Dr. Muna Wilson, Primary Care Physician, 09/12/16 at 1:30pm and KOFI Turpin, [facility], 09/29/16 at 9:00am. A: Patient is cooperative, guarded, flat affect, hopeful. P: Follow care plan, coordinate with out-patient providers.
--- NOTE | 2016-09-09 19:34 | PCM.DC.MED ---
Discharge Summary Date of Service Sep 09, 2016 Dates of Hospitalization Date of Hospital Admission Sep 03, 2016 at 12:00 Date of Discharge: Sep 09, 2016 Providers: Admitting Physician: Eugenia Ross MD Primary Care Physician: Muna Wilson MD Attending Physician: Eugenia Ross MD Diagnosis at Time of Discharge Diagnosis at Time of Discharge AXIS I: Psychotic disorder unspecified. Attention deficit disorder by history Panic disorder by history Marijuana use disorder. AXIS II: Deferred AXIS III: Hypertension, lytic lesion left orbit AXIS IV: Unemployed, lives alone, limited coping skills. AXIS V: GAF 45 Consultations Summary of Internal Medicine consultation: This is a medical consultation requested by inpatient psychiatry. 5-year-old gentleman with a history of ADD who is admitted with acute auditory hallucinations. He has no history of psychosis, schizophrenia, or schizoaffective disorder. He denies a family history of the above. He has a remote history of alcohol dependence but has been sober for about a year. He uses occasional marijuana but denies any other illicit drug use including methamphetamines. The patient has a right periorbital hematoma which she declines to talk about today. I am told this may relate to his self-inflicted wound. The patient was evaluated head CT which showed abnormal signal in the right orbital rim. No fracture. He also is noted to have leukocytosis. The patient denies recent infectious symptoms including rhinorrhea and sore throat cough dyspnea. No nausea vomiting or diarrhea. No hematuria or dysuria. No myalgias or arthralgias fevers or chills. 1. Acute psychosis. It is unclear if this is drug related or manifestation of schizophrenia. The patient is having this managed by inpatient behavioral health 2. Leukocytosis,a nonspecific finding, pt remains afebrile, HD stable, blood cultures 2 are no growth so far, chest x-ray was unremarkable, UA was negative -Given persistent tachycardia along with leukocytosis, EKG was ordered. showed normal rate, sinus rhythm. TSH WNL 3. Head CT report: "Small lytic focus involving the left supraorbital rim. Recommend nuclear medicine bone scan to aid in differentiating benign from aggressive processes."PSA ordered byED is negative This ill-defined bony process could certainly be associated with persistent white count, given stable clinical picture, unknown chronicity of leukocytosis, given involuntary penitentiary in psych unit, it might be beneficial to proceed further work ups as an outpatient, such as bone scan. I do not see any urgent need of inpatient workups. Thank you for allowing me taking care of this patient. Hospitalist service will sign off. Please have patient follow up PCP upon discharge. Please do not hesitate to reach hospital service again if you have any further question or concern Procedures XRay, CTs & MRIs Patient Name: JOSE FERGUSON MR#: [id number] Location: [facility] Ordering Phys: Angel Villegas MD Date of Service: 09/03/16 042 PROCEDURE: CT BRAIN WITHOUT CONTRAST ([id number]) INDICATIONS: NEW ONSET HALLUCINATIONS TECHNIQUE: Noncontrast 4.5 mm thick angled axial sections acquired from the foramen magnum to the vertex, with coronal reformats. COMPARISON: None. FINDINGS: Image quality: Excellent. CSF spaces: Basal cisterns are patent. No extra-axial fluid collections. Ventricles are normal in size and shape. Brain: No midline shift. No intracranial masses or hemorrhage. Hester-white matter interface is normal. Skull and face: Calvarium and visualized facial bones are intact. 1.1 x 0.6 cm lytic focus noted in the lateral margin of the left supraorbital rim which is nonspecific imaging characteristics. Sinuses: Mucosal thickening noted in the maxillary sinuses. The mastoids are clear. IMPRESSION: 1. No acute intracranial disease process. 2. Small lytic focus involving the left supraorbital rim. Recommend nuclear medicine bone scan to aid in differentiating benign from aggressive processes. Dictated by: Tabitha Caro MD, PhD on 09/03/2016 at 8:24 Approved by: Tabitha Caro MD, PhD on 09/03/2016 at 8:28 Hospital Course The patient was initially quite threatening and hostile, pounding on doors and trying to elope. He was quite convinced that the neighbors had poisoned him and implanted device is unknown. He initially stated that he would do what ever was required to release from the hospital including harming others. The patient was initially placed on olanzapine 10 mg at bedtime. The patient remained irritable and suspicious for the first few days and refused to eat food for approximately a day and a half. Olanzapine was therefore increased to 10 mg twice daily. Throughout this time, the patient was medication adherent and gradually calmed. 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 The patient experienced some sedation from the lorazepam and olanzapine and so olanzapine was reduced to 5 mg daily and 10 mg at bedtime. The patient expressed concern about his gun rights to staff and continued to report that he believed the neighbors were somehow communicating with him although he could not see them or see signs of how this was done. A 14 day order was requested due to his history of self-injurious behavior, threats to staff, and ongoing paranoid delusions regarding the neighbors and access to weapons. He was released by the court. The patient's family agreed to take custody of the firearms and assist patient in remaining medication adherent. There were no episodes of seclusion or restraint during this hospital stay. On admission, the patient's head CT showed a lytic lesion in his orbit. The patient was too agitated and threatening to elope and so the recommended meal plan and medicine scan could not occur. Given his persistently elevated white count without source, this should be further investigated as an outpatient on follow-up with his primary care provider. At the time of discharge, the patient was reporting his mood was "good." Sleep was reported as "good" and appetite was reported as "normal." He denied anxiety or depression. He denied auditory or visual hallucinations and any thought, intent or plan of hurting himself or others. He denied paranoia regarding the neighbors. He denied medication side effects. Exam Vital Signs (Last) Date Time Temp Pulse Resp B/P Pulse Ox O2 Delivery O2 Flow Rate FiO2 09/09/16 09:05 36.0 65 16 113/73 09/03/16 13:14 98 Room Air Exam Discharge Mental Status Exam Appearance: Neat/well groomed, Other (right eye ecchymotic, swelling improved.) Attitude: Cooperative Behavior: Good eye contact, no abnormal movements noted Affect: Restricted Mood: Euthymic Thought Process/Associations: Logical/Sequential, Goal Directed Speech Production: Normal Speech Rate: Normal Speech Articulation: Normal Thought Content: Still some focus on neighbors/poisoning, but much improved. Danger to Self/Suicidal Ideation: None Danger to Others: None Delusions: Paranoid (continues to report paranoid delusions, but significantly decreased in intensity) Hallucinations: Auditory (Denies), Visual (Denies) Consciousness: Alert Orientation: Person, Place, Date, Situation Memory: Grossly Intact Estimate Intellectual Function: Average Basis for IQ estimate: Awareness current events, Word use/vocabulary, Educational history, Employment history Attention/Concentration & Cognition: Impaired Insight: Improving Judgement: Improving Test 09/03/16 04:30 09/03/16 04:50 09/05/16 08:40 09/06/16 13:15 Prostate Specific Antigen 0.9ng/mL (0.0-4.0) Thyroid Stimulating Hormone (TSH) 1.210uIU/mL (0.450-4.500) Hold Moran Top Tube Received (Received) Urine Color Yellow (YELLOW) Urine Appearance Hazy (CLEAR,HAZY) Urine pH 6.0 (5.0-8.0) Urine Specific [place] 1.020 (1.003-1.035) Urine Protein Negativemg/dL (NEG,TRACE) Urine Glucose (UA) Negativemg/dL (NEGATIVE) Urine Ketones Negativemg/dL (NEGATIVE) Urine Occult Blood Negative (NEGATIVE) Urine Nitrite Negative (NEGATIVE) Urine Bilirubin Negative (NEGATIVE) Urine Urobilinogen Normalmg/dL (NORMAL) Urine Leukocyte Esterase Negative (NEGATIVE) Urine RBC 0-2/hpf (0-2) Urine WBC 0-5/hpf (0-5) Urine Epithelial Cells Occasional/hpf (NONE-MOD) Urine Crystals Oxalic acid crystals (NONE Urine Bacteria None/hpf (NONE-FEW) Urine Hyaline Casts None/lpf (NONE) Urine Granular Casts None seen (NONE SEEN) Urine Waxy Casts None seen (NONE SEEN) Urine Red Blood Cell Casts None seen (NONE SEEN) Urine White Blood Cell Casts None seen (NONE SEEN) Urine Mucus Present (None Seen) Urine Trichomonas None seen (NONE SEEN) Urine Yeast None (NONE SEEN) Urine Culture Reflexed Not indicated Hold Urine Received (Received) Neutrophils (%) (Auto) 65.2% (40-74) Lymphocytes (%) (Auto) 20.3% (14-46) Monocytes (%) (Auto) 11.6% (4-12) Eosinophils (%) (Auto) 2.0% (0-5) Basophils (%) (Auto) 0.4% (0-3) Phosphorus Level 3.5mg/dL (2.5-4.9) Magnesium Level 2.1mg/dL (1.6-2.6) Procalcitonin 0.05ng/mL (0.00-0.08) White Blood Count 14.7th/mm3 (3.8-10.1) Red Blood Count 4.99mil/mm3 (4.40-5.80) Hemoglobin 15.4g/dL (13.8-17.2) Hematocrit 43.6% (41.0-50.0) Mean Corpuscular Volume 87.4fL (81-100) Mean Corpuscular Hemoglobin 30.9pg (27.0-35.0) Mean Corpuscular Hemoglobin Concent 35.3% (32.0-37.0) Red Cell Distribution Width 12.3% (12.3-15.4) Platelet Count 246bil/L (150-400) Sodium Level 139mEq/L (134-144) Potassium Level 3.9mEq/L (3.5-5.2) Chloride Level 99mEq/L (97-108) Carbon Dioxide Level 26mmol/L (18-29) Blood Urea Nitrogen 18mg/dL (6-24) Creatinine 0.58mg/dL (0.76-1.27) Estimat Glomerular Filtration Rate 165mL/min (>59) Glucose Level 90mg/dL (60-99) Calcium Level 9.1mg/dL (8.5-10.1) Total Bilirubin 0.4mg/dL (0.0-1.2) Aspartate Amino Transf (AST/SGOT) 48U/L (0-50) Alanine Aminotransferase (ALT/SGPT) 55U/L (0-44) Alkaline Phosphatase 87U/L (25-150) Total Protein 7.1g/dL (6.4-8.4) Albumin 4.3g/dL (3.4-5.0) Whole Blood Lead 1ug/dL (0-19) Discharge Medications Discharge Medications Citalopram Hydrobromide (Celexa) 40 Mg Tablet 40 MG PO DAILY Prescribed by: EUGENIA ROSS MD Olanzapine (Olanzapine) 5 Mg Tablet 10 MG PO HS Prescribed by: EUGENIA ROSS MD Olanzapine (Olanzapine) 5 Mg Tablet 5 MG PO DAILY Prescribed by: EUGENIA ROSS MD Propranolol HCl (Propranolol HCl) 80 Mg Tablet 80 MG PO BID (Reported) As needed Zolpidem (Ambien) 5 Mg Tablet 5 MG PO HS PRN PRN Insomnia Prescribed by: EUGENIA ROSS MD Followup Plan Disposition: The patient was released by the court into the care of his family. The patient verbally consented to take the prescribed medications. The patient verbally expressed understanding of the risks, benefits, alternative treatment options, and risks of not taking the prescribed medication. The patient verbally expressed understanding of the medication instructions, that he will adhere to the prescribed medication, and that he will go to all aftercare scheduled appointments. Follow-up plan Mental Health Hina KOFI Copeland on September 29, 2016 at [address] Ninoska Wilson on September 12, 2016 @ 01:30 [facility] [place] [address] Discharge Diet: No restrictions Discharge Activity: No restrictions Patient Instructions Should you have any thoughts of harming yourself or others, please call the crisis line, your provider, 911, or go to the nearest Emergency Department. Do not change or discontinue your medications without discussing with your provider. You have been given a prescription for 30 days supply of your medication Follow-up with your medical provider regarding the lesion on your left orbit. Eugenia Ross MD Sep 09, 2016 19:34
== END 2016-09-09 12:45 | disposition home or self-care (01) | DRG 751 ==
LOC: SED 03:49 → MHC 12:00
PROVIDERS: ADMIT Psychiatry & Neurology Psychiatry; ATTEND Psychiatry & Neurology Psychiatry
DX: F29 Unspecified psychosis not due to a substance or known physiological condition (principal); F22 Delusional disorders; F41.0 Panic disorder [episodic paroxysmal anxiety]; F10.21 Alcohol dependence, in remission; Z91.5 Personal history of self-harm